=== PATIENT | female | born 1955 | race Caucasian/White ===

== ENCOUNTER → 2018-02-17 12:41 | Outpatient (CLI) | payer OTHER, SELFPAY ==
--- NOTE | 2018-02-17 | DI.RAD.S_ITS ---
PROCEDURE: XR HIP W PEL IF DONE RT 2V INDICATIONS: RIGHT HIP PAIN TECHNIQUE: AP pelvis with lateral view(s) of the right hip(s). COMPARISON: [facility], PELVIS WITH BILATERAL HIPS, 11/25/2010, 10:12. FINDINGS: Bones: No fractures or dislocations. Pelvic ring appears intact. No suspicious bony lesions. Mild symmetric hip joint narrowing periarticular osteophyte formation. Mild degenerative change involving the L5-S1 level. Soft tissues: The visualized bowel gas pattern is normal. No suspicious soft tissue calcifications. Soft tissue calcifications likely injection granulomata within the lower abdomen. IMPRESSION: Mild symmetric hip joint degeneration. Dictated by: Sunil Linton A Interpreted: Antonino Suarez MD on 02/17/2018 at 13:40 Approved by: Antonino Suarez M.D. on 02/17/2018 at 14:34
== END ==
PROVIDERS: Visit Provider Internal Medicine
DX: M16.0 Bilateral primary osteoarthritis of hip (principal)
CPT/HCPCS: 73502

== ENCOUNTER 2021-05-10 12:05 | Emergency (ER) | payer OTHER, SELFPAY ==
[2021-05-10] VITALS (7 sets, daily range): BP systolic 146–162; BP diastolic 72–85; PULSE 68–87; RESP 16–18; TEMP 35.6; O2SAT 91–93; BMI 34.9
--- NOTE | 2021-05-10 12:30 | DI.RAD.S_ITS ---
PROCEDURE: XR CHEST 1V INDICATIONS: Dropped TV on chest TECHNIQUE: One view of the chest was acquired. COMPARISON: [facility], , CHEST 2 VIEW, 10/20/2013, 15:55. FINDINGS: Surgical changes and devices: None. Lungs and pleura: Lungs are clear. No pleural effusions or pneumothorax. Mediastinum: Mediastinal contours appear normal. Heart size is normal. Bones and chest wall: No suspicious bony lesions. Overlying soft tissues appear unremarkable. IMPRESSION: No acute cardiopulmonary disease process. Dictated by: Bonita You MD, PhD on 05/10/2021 at 11:47 Approved by: Bonita You MD, PhD on 05/10/2021 at 11:48
--- NOTE | 2021-05-10 12:30 | ED.BACK ---
HPI - Back Pain/Injury <Alexandre Mcneill PA-C - Last Filed: 05/10/21 13:46> General Chief Complaint: Back Pain/Injury Stated Complaint: Dropped TV on Chest, Pain Time Seen by Provider: 05/10/21 12:14 History of Present Illness HPI Narrative: Patient is a 65-year-old female presenting to the emergency department today for evaluation of chest pain that began 3-4 days ago. Patient states that she was moving a 42 in flat screen television from the top of her dresser when she lost stereoptic projection topographer of the television causing it to slam into her chest. Patient explains that she experienced immediate chest pain and notes that she has had pain with deep inspiration ever since the incident. Of note, patient denies falling as result of the injury or hitting her head, and she notes that the pain has recently began to radiate to her back. The patient states that her chest pain and dyspnea have worsened since the initial injury. Patient denies fever, chills, shortness of breath, cough, hemoptysis, abdominal pain, nausea, vomiting, diarrhea, dysuria, lightheadedness, or dizziness. No other concerns voiced at this time. Related Data Home Medications Medication Instructions Recorded Confirmed Aspirin/Carisoprodol/Codeine (SOMA 1 tab PO TID #0 04/26/12 COMPOUND W/CODEINE 325/200/16) Ranitidine Hydrochloride 150 mg PO BID #0 04/26/12 (RANITIDINE) baclofen 20 mg tablet 20 mg PO HSP #0 04/26/12 estradiol 0.5 mg tablet 0.5 mg PO QDAY #0 04/26/12 hydroxychloroquine 200 mg tablet 200 mg PO BIDCC #0 04/26/12 (Plaquenil) medroxyprogesterone 2.5 mg tablet 2.5 mg PO QDAY #0 04/26/12 tizanidine 4 mg capsule (Zanaflex) 4 mg PO HSP #0 04/26/12 tramadol 50 mg tablet 50 mg PO Q4HP #0 04/26/12 Previous Rx's Medication Instructions Recorded methylprednisolone 4 mg tablets in See Rx Instructions .ROUTE 05/10/21 a dose pack (Medrol (Edgard)) .COMPLEX #21 ea Allergies Allergy/AdvReac Type Severity Reaction Status Date / Time codeine Allergy Unknown Hives Verified 05/10/21 12:42 Sulfa (Sulfonamide Allergy Unknown Hives Verified 05/10/21 12:42 Antibiotics) morphine Allergy Vomiting Verified 05/10/21 12:16 Review of Systems <Alexandre Mcneill PA-C - Last Filed: 05/10/21 13:46> Constitutional Constitutional: Denies chills, Denies fever(s), Denies frequent falls, Denies lethargy and Denies weakness ENT Ears, Nose, Mouth, and Throat: Denies change in voice, Denies dizziness, Denies neck pain and Denies sore throat Cardiovascular Cardiovascular: Reports chest pain, Denies irregular heart rhythm, Denies lightheadedness, Denies palpitations, Denies dyspnea, Denies dyspnea on exertion and Reports other (Pain with deep inspiration) Respiratory Respiratory: Denies cough, Denies dyspnea, Denies dyspnea on exertion, Denies wheezing and Reports other (Pain with deep inspiration) Gastrointestinal Gastrointestinal: Denies abdominal pain, Denies change in bowel habits, Denies diarrhea, Denies nausea and Denies vomiting Musculoskeletal Musculoskeletal: Denies neck pain and Denies numbness Integumentary/Breasts Skin/Breast: Denies pruritus, Denies erythema, Denies rash and Denies wounds Neurologic Neurologic: Denies behavioral changes, Denies confusion, Denies dizziness, Denies frequent falls, Denies numbness and Denies weakness Psychiatric Psychiatric: Denies behavioral changes and Denies confusion Endocrine Endocrine: Denies palpitations Hematologic/Lymphatic Hematologic/Lymphatic: Denies easy bruising Allergic/Immunologic Allergic/Immunologic: Denies wheezing Patient History <Alexandre Mcneill PA-C - Last Filed: 05/10/21 13:46> Social History Smoking Status: Current every day smoker Smoking Status: Current every day smoker alcohol intake frequency: 3 or more drinks per day Substance Use Type: marijuana Exam <Alexandre Mcneill PA-C - Last Filed: 05/10/21 13:46> Narrative Exam Narrative: GENERAL: 65 year old patient appears stated age. Well-developed patient, in mild distress. HEAD: Atraumatic. Normocephalic. EYES: Pupils equal round and reactive. Extraocular motions intact. No scleral icterus. No injection or drainage. ENT: Nose without bleeding, purulent drainage. Throat without erythema, tonsillar hypertrophy or exudate. Airway patent. NECK: Trachea midline. Non tender CARDIOVASCULAR: Regular rate and rhythm without murmurs, gallops, or rubs. RESPIRATORY: Clear to auscultation. Breath sounds equal bilaterally. No wheezes, rales, or rhonchi. MUSCULOSKELETAL: Tenderness to palpation over the sternum and right side of the chest wall. No ecchymosis or gross deformity noted throughout the chest. GASTROINTESTINAL: Abdomen soft, non-tender, nondistended. EXTREMITIES: No edema or joint tenderness. BACK: Nontender without deformity or crepitance. No flank tenderness. NEURO: AOx3. SKIN: No rash or erythema of visible areas Initial Vital Signs Initial Vital Signs: Vital Signs Temperature 96.0 F L 05/10/21 12:13 Pulse Rate 87 05/10/21 12:13 Respiratory Rate 16 05/10/21 12:13 Blood Pressure 162/72 H 05/10/21 12:13 Pulse Oximetry 93 05/10/21 12:13 Cardio Pulses: radial pulses present bilaterally (Even and regular) <En Rosa DO - Last Filed: 05/10/21 14:52> Initial Vital Signs Initial Vital Signs: Vital Signs Temperature 96.0 F L 05/10/21 12:13 Pulse Rate 87 05/10/21 12:13 Respiratory Rate 16 05/10/21 12:13 Blood Pressure 162/72 H 05/10/21 12:13 Pulse Oximetry 93 05/10/21 12:13 Course <Alexandre Mcneill PA-C - Last Filed: 05/10/21 13:46> Course Course Narrative: Patient is a 65-year-old female presenting to the emergency department today for evaluation of chest pain that began 3-4 days ago. Orders Ordered: ED Orders 05/10/21 12:30 XR chest 1V Stat 05/10/21 12:53 EKG-12 Lead Stat Discontinued Medications Ketorolac Tromethamine (Ketorolac 30 Mg/Ml Vial) 30 mg IM NOW ONE Stop: 05/10/21 12:35 Last Admin: 05/10/21 12:45 Dose: 30 mg Documented by: ALFREDO Reevaluation(s) Reevaluation #1: Patient states that her pain has improved following Toradol injection. Reviewed results of chest x-ray with the patient and informed her the no acute bony abnormalities were detected. Twelve lead EKG ordered. Time: 13:00 Vital Signs Vital signs: Vital Signs - 8 hr 05/10/21 12:13 05/10/21 12:48 05/10/21 12:49 Temperature 96.0 F L Pulse Rate 87 73 72 Respiratory Rate 16 Blood Pressure 162/72 H 146/75 H Pulse Oximetry 93 91 91 05/10/21 12:58 05/10/21 13:00 05/10/21 13:16 Temperature Pulse Rate 68 Respiratory Rate 18 Blood Pressure 152/85 H Pulse Oximetry 91 91 05/10/21 13:40 Temperature Pulse Rate 82 Respiratory Rate 16 Blood Pressure Pulse Oximetry 93 <En Rosa DO - Last Filed: 05/10/21 14:52> Orders Ordered: ED Orders 05/10/21 12:30 XR chest 1V Stat 05/10/21 12:53 EKG-12 Lead Stat Discontinued Medications Ketorolac Tromethamine (Ketorolac 30 Mg/Ml Vial) 30 mg IM NOW ONE Stop: 05/10/21 12:35 Last Admin: 05/10/21 12:45 Dose: 30 mg Documented by: ALFREDO Vital Signs Vital signs: Vital Signs - 8 hr 05/10/21 12:13 05/10/21 12:48 05/10/21 12:49 Temperature 96.0 F L Pulse Rate 87 73 72 Respiratory Rate 16 Blood Pressure 162/72 H 146/75 H Pulse Oximetry 93 91 91 05/10/21 12:58 05/10/21 13:00 05/10/21 13:16 Temperature Pulse Rate 68 Respiratory Rate 18 Blood Pressure 152/85 H Pulse Oximetry 91 91 05/10/21 13:40 Temperature Pulse Rate 82 Respiratory Rate 16 Blood Pressure Pulse Oximetry 93 MDM - Back Pain/Injury <Alexandre Mcneill PA-C - Last Filed: 05/10/21 13:46> Imaging Data Chest x-ray: Radiologist's Impression: PROCEDURE:? XR CHEST 1V ? INDICATIONS:? Dropped TV on chest ? TECHNIQUE:? One view of the chest was acquired.? ? COMPARISON:? [facility], , CHEST 2 VIEW, 10/20/2013, 15:55. ? FINDINGS:? ? Surgical changes and devices:? None.? ? Lungs and pleura:? Lungs are clear.? No pleural effusions or pneumothorax.? ? Mediastinum:? Mediastinal contours appear normal.? Heart size is normal.? ? Bones and chest wall:? No suspicious bony lesions.? Overlying soft tissues appear unremarkable.? ? IMPRESSION:? No acute cardiopulmonary disease process. ? ? Dictated by: Bonita You MD, PhD on 05/10/2021 at 11:47 ? ? Approved by: Bonita You MD, PhD on 05/10/2021 at 11:48? ECG Data Interpretation: Heart rate 69 beats per minute, normal sinus rhythm T-wave abnormality, no axis deviation MDM Narrative Medical decision making narrative: Patient is a 65-year-old female presenting to the emergency department today for evaluation of chest pain that began 3-4 days ago. To consider costochondritis versus rib fracture versus atelectasis/pneumothorax versus pneumonia versus blunt cardiac injury Chest x-ray ordered and showed no acute bony abnormalities, pleural effusions, or pneumothorax present. Additionally, the mediastinal contours appear normal on the chest x-ray. EKG ordered and last available EKG for comparison was taken in 2011. Considering that the chest pain is reproducible with palpation and positioning and the onset of her pain came after the TV struck her chest, it is unlikely that any changes in EKG are indicative her acute pain. Discussed with the patient the results of her EKG in at this point she feels comfortable being discharged home. Instructed the patient to contact her primary care provider to schedule the earliest available appointment. Strict return precautions were discussed with the patient prior to discharge. Discharge Plan Departure Patient Disposition: Home Clinical Impression: Acute costochondritis Instructions: DI for Costochondritis Activity Restrictions/Additional Instructions: *You have been diagnosed with acute costochondritis *What to do: *Please continue to take your regular medications as directed. [X] New medication prescriptions sent to your pharmacy: [facility] - Medrol Dosepak [ ] New medication written as a paper prescription [ ] No new medications given *Please follow up with your primary care provider in next 24-48 hours call for an appointment. Let them know you were seen in the Emergency Department and that we ask that you be seen in follow up. We will electronically transmit a record of today's note if your PCP is in our system *If you do not have a primary care provider please contact the [facility] Resource line at [phone]. They will ask some questions about your medical history and help get you set up with a doctor in the community. *Return to Emergency Department if you should have any new, worsening or concerning symptoms, such as fever greater than 101 F, shaking chills, worsening chest pain pain, excessive sweating, worsening pain with inspiration, persistent vomiting or other bothersome symptoms. Prescriptions: New methylprednisolone [Medrol (Edgard)] 4 mg tablets,dose pack See Rx Instructions .ROUTE .COMPLEX Qty: 21 RF: 0 No Action hydroxychloroquine [Plaquenil] 200 MG tablet 200 mg PO BIDCC Qty: 0 RF: 0 Ranitidine Hydrochloride (RANITIDINE) 150 mg PO BID Qty: 0 RF: 0 estradiol 0.5 MG tablet 0.5 mg PO QDAY Qty: 0 RF: 0 medroxyprogesterone 2.5 MG tablet 2.5 mg PO QDAY Qty: 0 RF: 0 tramadol 50 MG tablet 50 mg PO Q4HP Qty: 0 RF: 0 baclofen 20 MG tablet 20 mg PO HSP Qty: 0 RF: 0 Aspirin/Carisoprodol/Codeine (SOMA COMPOUND W/CODEINE 325/200/16) 1 tab PO TID Qty: 0 RF: 0 tizanidine [Zanaflex] 4 MG capsule 4 mg PO HSP Qty: 0 RF: 0 Referrals: Magali Esposito MD [Primary Care Provider] - <En Rosa DO - Last Filed: 05/10/21 14:52> [facility] Dr Rosa Co-Sign Statement: I was available for consultation during this patient's emergency department visit. This chart is signed by myself for administrative purposes only. I did not have direct contact with this patient during this visit. They were seen independently by the APC.
[2021-05-10] MEDS: KETOROLAC 30 MG/ML VIAL IM (12:45)
== END 2021-05-10 13:40 | disposition home or self-care (01) ==
PROVIDERS: Emergency Provider Physician Assistant; PCP Internal Medicine
DX: M94.0 Chondrocostal junction syndrome [Tietze] (principal); W22.8XXA Striking against or struck by other objects, initial encounter
CPT/HCPCS: 71045; 93005; 93010; 96372; 99283; 99284; J1885

== ENCOUNTER → 2021-12-04 11:33 | Outpatient (CLI) | payer OTHER, SELFPAY ==
--- NOTE | 2021-12-04 | DI.US.S_ITS ---
ULTRASOUND OF LEFT BREAST: 12/04/2021 CLINICAL: Palpable left breast lump by physician. Comparison is made to exam dated: 12/04/2021 mammogram - [facility]. Color flow and Doppler ultrasound of the left breast were performed. Knox scale images of the real-time examination were reviewed. There is a new 0.8 cm x 0.4 cm x 0.5 cm irregular complicated cyst in the left breast at 12 o'clock anterior depth 7 cm from the nipple. IMPRESSION: PROBABLY BENIGN The new 0.8 cm x 0.4 cm x 0.5 cm irregular complicated cyst in the left breast is consistent with a complicated cyst and is probably benign. A follow-up ultrasound in 6 months is recommended. A follow-up left ultrasound in 6 months is recommended to demonstrate stability. This exam was interpreted at Station ID: [id number]. Electronically Signed By: Fredrick Gracia acr/:12/04/2021 13:31:08 letter sent: Followup Recommended Ultrasound BI-RADS: 3 Probably benign
--- NOTE | 2021-12-04 11:37 | DI.MG.S_ITS ---
BILATERAL DIGITAL DIAGNOSTIC MAMMOGRAM 3D/2D: 12/04/2021 CLINICAL: Left breast lump. Baseline. No prior exams were available for comparison. The tissue of both breasts is predominantly fatty. No significant masses, calcifications, or other findings are seen in either breast. No abnormality which corresponds with the palpable abnormality is seen. IMPRESSION: INCOMPLETE: NEEDS ADDITIONAL IMAGING EVALUATION There is no abnormality seen in the left breast to correspond with the area of clinical concern and palpable abnormality in the upper aspect, however, ultrasound is recommended. US will be performed and dictated separately. This exam was interpreted at Station ID: [id number]. NOTE: For mammograms, a report in lay terms will be sent to the patient. Approximately 15% of breast malignancies will not be visualized mammographically. In the management of a palpable breast mass, a negative mammogram must not discourage biopsy of a clinically suspicious lesion. Electronically Signed By: Fredrick Gracia acr/:12/04/2021 12:35:48 ACR BI-RADS Category 0: Incomplete [id number]
== END ==
PROVIDERS: PCP Internal Medicine; Referring Provider Internal Medicine; Visit Provider Internal Medicine
DX: N60.02 Solitary cyst of left breast (principal); R92.8 Other abnormal and inconclusive findings on diagnostic imaging of breast
CPT/HCPCS: 76642; 77066; G0279